=== PATIENT | female | born 1970 | race Caucasian/White ===

== ENCOUNTER 2018-01-24 10:46 | Emergency (ER) | payer OTHER ==
[~2018-01-24] VITALS: Ht 157.5 cm; Wt 81.2 kg
--- NOTE | 2018-01-24 11:50 | PHYS DOC ---
Past History Past Medical History: Hypertension Past Surgical History: No Surgical History Alcohol Use: Occasionally Drug Use: None Adult General Chief Complaint Chief Complaint: WRIST PAIN HPI HPI 47 old female presents with left hand and wrist pain. The patient was helping her daughter put together bunkbed and her college dorm when the top bunk bed post came down on the middle of her hand. She has pain and bruising over the dorsum of the hand. She denies numbness or tingling. She has pain with flexion of her fingers. The pain is worse along the fourth and fifth metacarpals. She denies any other injuries or concerns. Review of Systems Review of Systems Constitutional: Denies fever or chills [] Eyes: Denies change in visual acuity, redness, or eye pain [] HENT: Denies nasal congestion or sore throat [] Respiratory: Denies cough or shortness of breath [] Cardiovascular: No additional information not addressed in HPI [] GI: Denies abdominal pain, nausea, vomiting, bloody stools or diarrhea [] : Denies dysuria or hematuria [] Musculoskeletal: Left hand pain[] Integument: Denies rash or skin lesions [] Neurologic: Denies headache, focal weakness or sensory changes [] Endocrine: Denies polyuria or polydipsia [] All other systems were reviewed and found to be within normal limits, except as documented in this note. Allergies Allergies Allergies Coded Allergies Type Severity Reaction Last Updated Verified No Known Drug Allergies 01/24/18 No Physical Exam Physical Exam Constitutional: Well developed, well nourished, no acute distress, non-toxic appearance. [] HENT: Normocephalic, atraumatic, bilateral external ears normal, oropharynx moist, no oral exudates, nose normal. [] Eyes: PERRLA, EOMI, conjunctiva normal, no discharge. [] Neck: Normal range of motion, no tenderness, supple, no stridor. [] Cardiovascular:Heart rate regular rhythm, no murmur [] Lungs & Thorax: Bilateral breath sounds clear to auscultation [] Abdomen: Bowel sounds normal, soft, no tenderness, no masses, no pulsatile masses. [] Skin: Warm, dry, no erythema, no rash. [] Back: No tenderness, no CVA tenderness. [] Extremities: Left hand bruising and tenderness to palpation over the fourth and fifth metacarpals[] Neurologic: Alert and oriented X 3, normal motor function, normal sensory function, no focal deficits noted. [] Psychologic: Affect normal, judgement normal, mood normal. [] Current Patient Data Vital Signs Vital Signs Date Time Temp Pulse Resp B/P (MAP) Pulse Ox O2 Delivery O2 Flow Rate FiO2 01/24/18 11:31 97.1 82 18 98 Room Air EKG EKG [] Radiology/Procedures Radiology/Procedures [] Impressions: HAND LEFT 3V, WRIST 3V LEFT (wrist and hand PA, oblique, lateral) INDICATION: SMASHED LEFT HAND/WRIST, PAIN IN WRIST AREA RADIATING TO METACARPALS, UNABLE TO REMOVE JEWELRY COMPARISON: None. WRIST FINDINGS: No acute fracture or malalignment. The joint spaces are maintained. Bony mineralization is normal for the patient's age. No significant soft tissue abnormality. No radiopaque foreign body. HAND FINDINGS: Jewelry overlying the fourth proximal phalanx obscures osseous detail. No acute fracture or malalignment. The joint spaces are maintained. Bony mineralization is normal for the patient's age. No significant soft tissue abnormality. No radiopaque foreign body. IMPRESSION: No acute fracture or malalignment. Electronically signed by: Kirk Vee MD (01/24/2018 11:59 AM) [facility] DICTATED AND SIGNED BY: KIRK VEE MD DATE: 01/24/18 1156 CC: ROSEANNE WESTON DO; ZIGGY VALDOVINOS MD Course & Med Decision Making Course & Med Decision Making Pertinent Labs and Imaging studies reviewed. (See chart for details) Patient's x-rays are negative for fracture. She just has a contusion. She is stable for discharge at this time. She will use OTC medications for pain. [] Dragon Disclaimer Dragon Disclaimer This electronic medical record was generated, in whole or in part, using a voice recognition dictation system. Departure Departure: Referrals: ZIGGY VALDOVINOS MD (PCP) ROSEANNE WESTON DO Jan 24, 2018 11:50
--- NOTE | 2018-01-24 12:02 | RAD ---
HAND LEFT 3V, WRIST 3V LEFT (wrist and hand PA, oblique, lateral) INDICATION: SMASHED LEFT HAND/WRIST, PAIN IN WRIST AREA RADIATING TO METACARPALS, UNABLE TO REMOVE JEWELRY COMPARISON: None. WRIST FINDINGS: No acute fracture or malalignment. The joint spaces are maintained. Bony mineralization is normal for the patient's age. No significant soft tissue abnormality. No radiopaque foreign body. HAND FINDINGS: Jewelry overlying the fourth proximal phalanx obscures osseous detail. No acute fracture or malalignment. The joint spaces are maintained. Bony mineralization is normal for the patient's age. No significant soft tissue abnormality. No radiopaque foreign body. IMPRESSION: No acute fracture or malalignment. Electronically signed by: Kirk Gonzalez MD (01/24/2018 11:59 AM) [facility]
[2018-01-24 12:35] VITALS: BP 165/86
== END 2018-01-24 12:38 | disposition home or self-care (01) ==
LOC: ER 10:46
DX: S60.222A Contusion of left hand, initial encounter (principal); I10 Essential (primary) hypertension; W22.03XA Walked into furniture, initial encounter; Y93.89 Activity, other specified; Y92.89 Other specified places as the place of occurrence of the external cause; Y99.8 Other external cause status
CPT/HCPCS: 73110; 73130; 99284